=== PATIENT | female | born 1960 | race Two or more races ===

== ENCOUNTER 2018-04-10 05:02 | Inpatient (IN) | payer OTHER ==
[~2018-04-10] VITALS: Ht 157.5 cm; Wt 77.1 kg
[2018-04-10] MEDS ORDERED: CELECOXIB 100 MG CAPSULE ONE (05:50)
[2018-04-10] MEDS ORDERED: oxyCODONE HCL SR 10MG TAB.SR.12H PO ONE (05:50)
[2018-04-10] MEDS ORDERED: METOCLOPRAMIDE HCL 10 MG/2 ML VIAL ONE (05:50)
[2018-04-10] MEDS ORDERED: ACETAMINOPHEN ES 500 MG TABLET ONE (05:51)
[2018-04-10] MEDS ORDERED: ANESTHESIA TRAY IN PYXIS 1 EA TRAY MC ONE (06:15)
[2018-04-10] MEDS ORDERED: KETOROLAC TROMETHAMINE INJ 30 MG/ML VIAL ONE ×2 (06:21→10:31)
[2018-04-10] MEDS ORDERED: MORPHINE SULFATE INJ 4 MG/ML DISP.SYRIN ONE (06:21)
[2018-04-10] MEDS ORDERED: BUPIVACAINE MPF 0.5% W/EPI INJ 30 ML VIAL ONE (06:21)
[2018-04-10] MEDS ORDERED: MIDAZOLAM HCL 2 MG/2ML VIAL ONE (06:44)
[2018-04-10] MEDS ORDERED: HYDROMORPHONE INJ 2 MG/ML DISP.SYRIN ONE (06:44)
[2018-04-10] MEDS ORDERED: BUPIVACAINE 0.5 % PF 150 MG/30 ML VIAL ONE (06:44)
[2018-04-10] MEDS ORDERED: TRANEXAMIC ACID 1,500 MG in IV NS 0.9% 50 ML IV ONE (07:00)
[2018-04-10] MEDS ORDERED: BACITRACIN 50000 UNITS/VIAL ONE (07:31)
[2018-04-10] MEDS ORDERED: oxyCODONE IR immediate release 5 MG ONE (10:27)
[2018-04-10] MEDS ORDERED: KETOROLAC TROMETHAMINE INJ 30 MG/ML VIAL IV ONE (10:30)
[2018-04-10] MEDS ORDERED: ASPIRIN 600 MG/SUPP.RECT RC ONE (10:30)
[2018-04-10] MEDS ORDERED: oxyCODONE IR immediate release 5 MG PO ONE (10:30)
[2018-04-10] MEDS ORDERED: HYDROMORPHONE 1 MG/1 ML DISP.SYRIN ONE (10:40)
[2018-04-10] MEDS ORDERED: BISACODYL SUPP (10 MG) 10 MG/SUPP.RECT SUPP.RECT RC PRN (11:00)
[2018-04-10] MEDS ORDERED: ACETAMINOPHEN 325 MG TABLET PO PRN (11:00)
[2018-04-10] MEDS: KETOROLAC TROMETHAMINE INJ 30 MG/ML VIAL IV SCH ×3 (11:00→22:06)
[2018-04-10] MEDS ORDERED: HYDROMORPHONE INJ 0.5 MG/0.5 ML SYRINGE IV PRN (11:00)
[2018-04-10] MEDS ORDERED: ZOLPIDEM TARTRATE 5 MG TABLET PO PRN (11:00)
--- NOTE | 2018-04-10 11:41 | NUR ---
MS REIMBURSEMENT REPRESENTATIVE NOTES: RECEIVED PT FROM OR RECOVERY NURSE IN STABLE CONDITION. PT S/P RIGHT KNEE ARTHROPLASTY DONE BY DR. PICKERING. MD ORDERS NOTED AND REVIEWED. PT IS A/O X4. NO SOB OR ACUTE SIGNS OF DISTRESS NOTED. BREATHING IS EVEN AND UNLABORED. PT ON 2L VIA NC AFTER ANESTHESIA ADMINISTRATION. IV TO LEFT WRIST NOTED TO BE PATENT AND INTACT. NO REDNESS OR SIGNS OF INFILTRATION NOTED. JAMES CATHETER NOTED TO BE PATENT AND DRAINING CLEAR YELLOW URINE. ORDERS TO REMOVE CATHETER 2 DAYS POST OP ACKNOWLEDGE. SURGICAL DRESSINGS NOTED TO BE CLEAN, DRY, AND INTACT. KNEE BRACE NOTED WELL. PT ABLE TO WIGGLE TOES. GOOD CAP REFILL NOTED TO LOWER EXTREMITIES. VSS WITH THE EXCEPTION OF PT'S BP NOTED TO BE ON THE HIGHER END (1616/97). WILL ADMINISTER SCHEDULED PAIN MEDICATION PT STATES THAT SHE IS EXPERIENCING AN ACHING PAIN SATED A 7/10 TO HER OPERATIVE SITE. HEAD TO TOE ASSESSMENT COMPLETED. ADMISSION PHOTOS TAKEN UPON ARRIVAL AND PLACED IN PT'S CHART. BELONGINGS VERIFIED BY INSULATION INSTALLER. PT ORIENTED TO ROOM AND USE OF CALL LIGHT. BED IN LOW LOCKED POSITION, SIDE RAILS UP X2, CALL LIGHT WITHIN REACH. WILL CONTINUE TO MONITOR
[2018-04-10] MEDS: ONDANSETRON HCL/PF 4 MG/2 ML VIAL IVP SCH ×3 (12:32→22:06)
[2018-04-10] MEDS: IV D5/0.45 NACL 1,000 ML IV PRN (12:34)
[2018-04-10] MEDS: HYDROCODONE/APAP 5/325MG 1 EACH TABLET PO SCH ×4 (12:36→22:07)
[2018-04-10] MEDS ORDERED: LOSA50TA39 PO (13:16)
--- NOTE | 2018-04-10 14:32 | NUR ---
MS RN NOTES: ORDERS DR ESTRADA AT BEDSIDE. UPDATED ON PT'S BP WHICH IS CURRENTLY 165/97. PER MD "CONTINUE TO MONITOR, IF IT CONTINUES TO INCREASE, THEN I CAN GIVE HER SOMETHING ELSE". ALSO GIVEN ORDERS TO REMOVE PT'S JAMES POST OP DAY 1 AND WHEN ASKED BY PT'S DAUGHTER, ALSO ORDERED THAT FAMILY MAY STAY AT BEDSIDE OVERNIGHT IF SPACE PERMITS Addendum: 04/10/18 at 1757 by DANIELLE MONTIEL RN PLEASE DISREGARD TIME OF THIS NOTE IT WAS INPUTTED IMPROPERLY
[2018-04-10 15:30] VITALS: BP 165/97
--- NOTE | 2018-04-10 15:32 | NUR ---
MS RN NOTES: BP MANAGEMENT PT HAS A CURRENT OUTPATIENT PHYSICAL THERAPIST ASSISTANT OF 176/113. NO PRN OR SCHEDULED BP MEDS NOTED. DR ESTRADA NOTIFIED THROUGH [employer]. TELEPHONE ORDERS OBTAINED TO CONTINUE PT'S [place] 50MG PO DAILY , WITH A DOSE TO BE GIVEN NOW AND RECHECK PT'S BP AN HR AFTER ADMINISTRATION
[2018-04-10] MEDS: LOSARTAN POTASSIUM 50 MG TABLET PO SCH (16:18)
[2018-04-10] MEDS: CELECOXIB 100 MG CAPSULE PO SCH (16:18)
--- NOTE | 2018-04-10 17:32 | NUR ---
MS RN NOTES: ORDERS DR ESTRADA AT BEDSIDE. MD UPDATED ON PT'S BP WHICH IS CURRENTLY 165/97. PER MD "CONTINUE TO MONITOR, IF IT CONTINUES TO INCREASE, THEN I CAN GIVE HER SOMETHING ELSE". ALSO GIVEN ORDERS TO REMOVE PT'S JAMES POST OP DAY 1 AND WHEN ASKED BY PT'S DAUGHTER, ALSO ORDERED THAT FAMILY MAY STAY AT BEDSIDE OVERNIGHT IF SPACE PERMITS
[2018-04-10 18:20] VITALS: BP 154/85
--- NOTE | 2018-04-10 18:24 | NUR ---
MS RN CLOSING NOTES PT REMAINS STABLE. ALL NEEDS WERE MET DURING SHIFT AND ORDERS CARRIED OUT ACCORDINGLY. ALL DUE MEDS GIVEN. BP CONTINUES TO DROP AND CURRENT 154/85. SHE STATES HER PAIN IS MANAGEABLE AT THIS TIME. JAMES CATHETER REMAINS PATENT AND INTACT. PRN CARE RENDERED. SURGICAL DRESSINGS REMAIN CLEAN, DRY, AND INTACT. SAFETY MEASURES REMAIN IN PLACE. PT'S DAUGHTERS AT BEDSIDE. WILL ENDORSE TO NIGHTSHIFT RN FOR JOSE
--- NOTE | 2018-04-10 19:10 | NUR ---
RN OPENING NOTES PT AWAKE AND RESTING IN BED. DAUGHTER AT BEDSIDE. PT IS S/P RIGHT TOTAL KNEE ARTHROPLASTY BY DR WAYNE (04/10/18). NO COMPLAINTS OF SOB, PAIN, OR DISTRESS AT THIS TIME. PT HAS A LEFT WRIST IV. PT HAS A JAMES CATHETER DRAINING WELL, JAMES WILL BE DC'D PER DR ESTRADA. DRESSINGS TO BE CHANGED BY MD ONLY. SAFETY PRECAUTIONS IN PLACE, BED IN LOWEST LOCKED POSITION, X2 SIDE RAILS UP AND CALL LIGHT WITHIN REACH. WILL CONTINUE TO MONITOR.
[2018-04-10 20:00] VITALS: BP 143/90
[2018-04-10] MEDS: CEFAZOLIN SODIUM 1 GM in IV SODIUM CHLORIDE 0.9% 50 ML IV SCH (20:48)
[2018-04-11] MEDS: CEFAZOLIN SODIUM 1 GM in IV SODIUM CHLORIDE 0.9% 50 ML IV SCH (03:00)
[2018-04-11] MEDS: HYDROCODONE/APAP 5/325MG 1 EACH TABLET PO SCH ×6 (03:04→22:10)
[2018-04-11] MEDS: KETOROLAC TROMETHAMINE INJ 30 MG/ML VIAL IV SCH ×4 (04:20→23:26)
[2018-04-11] MEDS: ONDANSETRON HCL/PF 4 MG/2 ML VIAL IVP SCH (04:20)
--- NOTE | 2018-04-11 06:08 | NUR ---
RN CLOSING NOTES PT AWAKE AND RESTING IN BED. DAUGHTER AT BEDSIDE. PT IS S/P RIGHT TOTAL KNEE ARTHROPLASTY BY DR WAYNE (04/10/18). NO COMPLAINTS OF SOB OR DISTRESS. PT HAS A SCHEDULED NORCO AND TORADOL. PT AWARE OF PRN MEDICATIONS AVAILABLE TO HER. PT HAS A LEFT WRIST #20 IV RUNNING D51/2NS @75ML/HR, PT TOLERATING WELL. PT HAS A JAMES CATHETER DRAINING WELL, JAMES WILL BE DC'D PER DR ESTRADA. DRESSINGS TO BE CHANGED BY MD ONLY. SAFETY PRECAUTIONS IN PLACE, BED IN LOWEST LOCKED POSITION, X2 SIDE RAILS UP AND CALL LIGHT WITHIN REACH. ALL PATIENT NEEDS MET OVERNIGHT. WILL CONTINUE TO MONITOR. WILL ENDORSE TO DAY SHIFT NURSE FOR CONTINUITY OF CARE.
[2018-04-11 07:28] LABS: BASOPHILS % (AUTO) 0.2 % (0.0-2.0); EOSINOPHILS % (AUTO) 0.2 % (0.0-6.0); HEMATOCRIT 37 % (33-45); HEMOGLOBIN 12.5 g/dL (11.5-14.8); LYMPHOCYTES # (AUTO) 1.6 /CMM (0.8-4.8); MEAN CORPUSCULAR HGB CONC 34 g/dl (31.0-36.0); MEAN CORPUSCULAR VOLUME 89 fL (82-100); MONOCYTES # (AUTO) 1.1 /CMM (0.1-1.30); NEUTROPHILS # (AUTO) 9.7 /CMM (1.8-8.9); NEUTROPHILS % (AUTO) 77.6 % (43.0-81.0); PLATELET COUNT (AUTO) 210 /CMM (150-450); WHITE BLOOD COUNT (AUTO) 12.5 K/uL (4.3-11.0)
--- NOTE | 2018-04-11 07:56 | NUR ---
MS RN OPENING NOTES RECEIVED PATIENT IN STABLE CONDITION. IN NO APPARENT DISTRESS. BEDSIDE RAILS ARE UPX2. BED IS LOCKED AND LOWERED. CALL LIGHT IS WITHIN REACH. IV LINE IS INTACT AND PATENT. WILL CONTINUE TO MONITOR PATIENT.
[2018-04-11 08:00] VITALS: BP 113/53
[2018-04-11 08:01] LABS: CALCIUM, SERUM 8.4 mg/dL (8.5-10.1); CREATININE 0.9 mg/dL (0.6-1.3); POTASSIUM 4.1 mmol/L (3.5-5.1)
[2018-04-11] MEDS: ASPIRIN EC 325 MG TABLET.DR PO SCH ×2 (08:49→16:00)
[2018-04-11] MEDS: CELECOXIB 100 MG CAPSULE PO SCH (08:49)
[2018-04-11] MEDS: LOSARTAN POTASSIUM 50 MG TABLET PO SCH (08:49)
[2018-04-11] MEDS: IV D5/0.45 NACL 1,000 ML IV PRN (10:57)
[2018-04-11 16:00] VITALS: BP 127/74
--- NOTE | 2018-04-11 19:26 | NUR ---
MS RN CLOSING NOTES PATIENT IS IN STABLE CONDITION. IN NO APPARENT DISTRESS. BEDSIDE RAILS ARE UPX2. BED IS LOCKED AND LOWERED. CALL LIGHT IS WITHIN REACH. IV LINE IS INTACT AND PATENT. ALL NEEDS WERE MET. WILL ENDORSE CARE TO LIFE SKILLS EDUCATOR NURSE FOR JOSE.
--- NOTE | 2018-04-11 19:30 | NUR ---
MS/RN OPENING NOTES PT RECEIVED AWAKE, LAYING COMFORTABLY IN BED. FAMILY AT BEDSIDE. ON ROOM AIR, BREATHING EVEN AND UNLABORED. RIGHT LEG IMMOBILIZER IN PLACE. IV TO LEFT WRIST PATENT AND INTACT. DENIES SOB, NOTES 4/10 PAIN TO RIGHT LEG. BED IN LOW/LOCKED POSITION WITH CALL LIGHT IN REACH. SIDE RAILS UPX2. WILL CONTINUE TO MONITOR
[2018-04-11 20:00] VITALS: BP 124/73
--- NOTE | 2018-04-12 01:00 | NUR ---
MS/RN NOTES PT'S IV INFILTRATION, LEFT ARM NOTED WITH SWELLING. IVF STOPPED. IV REMOVED. WOULD LIKE TO REINSERT IV LATER TONIGHT, PRIOR TO NEXT TORADOL DOSE. EDUCATED ON IMPORTANCE OF IV ACCESS, RISKS/BENEFITS, STILL WOULD LIKE TO TRY A LITTLE LATER
[2018-04-12] MEDS: HYDROCODONE/APAP 5/325MG 1 EACH TABLET PO SCH ×6 (03:03→23:02)
--- NOTE | 2018-04-12 05:23 | NUR ---
RN NOTES: RESTARTED NEW IV ACCESS ON RIGHT WRIST USING G22, GOOD BLOOD RETURN NOTED, FLUSHED WITH SALINE, SECURE LINE WITH TRANSPARENT FILM DRESSING, PROPER LABELS APPLIED. IV ACCESS PLACED ON HL.
[2018-04-12] MEDS: KETOROLAC TROMETHAMINE INJ 30 MG/ML VIAL IV SCH (05:27)
--- NOTE | 2018-04-12 07:07 | NUR ---
MS/RN CLOSING NOTES PT WITH EYES CLOSED. ON ROOM AIR, BREATHING EVEN AND UNLABORED. DENIES SOB, PAIN MANAGED WITH PRN NORCO AND TORADOL. IV TO RFA PATENT AND INTACT RUNNING IVF ORDERED. ENCOURAGED INCENTIVE SPIROMETER USE WHILE AWAKE. WBAT TO RLE. ASSIST WITH AMBULATION WITH FWW. NO SIGNIFICANT CHANGES OVERNIGHT. ALL NEEDS MET. CPM MACHINE AT BEDSIDE. BED IN LOW/LOCKED POSITION WITH CALL LIGHT IN REACH. SIDE RAILS UPX2. HOB ELEVATED. WILL ENDORSE TO DAY SHIFT RN JOSE.
[2018-04-12 08:00] VITALS: BP 145/87
--- NOTE | 2018-04-12 08:00 | NUR ---
MS RN OPENING NOTE RECEIVED PATIENT IN BED LOCKED IN LOWEST POSITION WITH SIDERAILS UP x2. NO FACIAL GRIMACING NOTED FOR PAIN. NO SOB OR DISTRESS NOTED ON ROOM AIR TOLERATING WELL AT 96%. CALL LIGHT WITHIN REACH. S/P RIGHT TOTAL KNEE ARTHROPLASTY WITH DR. CHRISTIANSON 04/10/18- DRESSING TO BE CHANGED BY MD. RIGHT FOREARM INTACT AND PATENT WITH IV FLUIDS RUNNING AT 75 ML/HR. LABS THIS MORNING. ROUTINE PAIN MEDICATIONS. WBAT ON RIGHT LOWER EXT WITH IMMOBILIZER WHEN AMBULATING. WILL CONTINUE TO MONITOR THROUGHOUT SHIFT
[2018-04-12] MEDS: ASPIRIN EC 325 MG TABLET.DR PO SCH ×2 (09:07→16:31)
[2018-04-12] MEDS: LOSARTAN POTASSIUM 50 MG TABLET PO SCH (09:07)
--- NOTE | 2018-04-12 11:15 | NUR ---
MS RN NOTE SPOKE WITH CASE MANAGEMENT, PATIENT WILL HAVE TRANSPORTATION TO HOME FOR DISCHARGE TOMORROW 04/13/18 PATIENT AWARE AND IS OKAY WITH LEAVING TOMORROW
--- NOTE | 2018-04-12 11:42 | NUR ---
MS/RN NOTE THE PATIENT WITH RIGHT KNEE PAIN 10/31. ROUTINE NORCO 5/325 1 TAB IS GIVEN.
[2018-04-12] MEDS: DOCUSATE SODIUM 100 MG CAPSULE PO PRN ×2 (13:13→21:54)
--- NOTE | 2018-04-12 15:00 | NUR ---
MS RN NOTE SPOKE WITH PATIENTS PREFERRED PHARMACY- [facility] IN [place] AND SPOKE WITH TRINA IN REGARDS TO PATIENTS PRESCRIPTION FROM DR OH. PHARMACY STATED THAT PRESCRIPTION NEEDED TO BE ON PRESCRIPTION PAD AND AT THIS TIME WILL FOLLOW UP WITH MD OFFICE FRIDAY MORNING BEFORE PATIENT IS TAKEN HOME BY AMBULANCE TO HOME. PATIENT MADE AWARE
--- NOTE | 2018-04-12 15:19 | NUR ---
MS RN NOTE PATIENT HAS RIGHT KNEE PAIN 7/10-ACHING; ALTHOUGH THERAPEUTIC METHODS OFFERED STILL NOTICED WITH PAIN. ROUTINE NORCO 1 TAB GIVEN.
[2018-04-12 15:59] VITALS: BP 136/78
--- NOTE | 2018-04-12 18:47 | NUR ---
MS RN CLOSING NOTE PATIENT RESTING COMFORTABLY AT THIS TIME. ABLE TO COMMUNICATE ALL NEEDS. CALL LIGHT WITHIN REACH AT ALL TIMES. SAFETY MEASURES IMPLEMENTED. DISCHARGE IN AM, AWAITING TRANSPORTATION TIME. ALL DUE MEDICATIONS GIVEN ORDERED. NO SOB OR DISTRESS NOTED ON ROOM AIR TOLERATING WELL AT 97%. WILL ENDORSE TO EDITOR MAGAZINE NURSE FOR JOSE
[2018-04-12 19:58] VITALS: BP 131/77
[2018-04-13] MEDS: HYDROCODONE/APAP 5/325MG 1 EACH TABLET PO SCH ×3 (03:48→11:06)
--- NOTE | 2018-04-13 06:21 | NUR ---
MS RN NOTES AWAKE & RESPONSIVE. NOT IN ANY DISTRESS. NO SOB NOTED. DENIES ANY PAIN OR DISCOMFORT AT THIS TIME. WITH IV-HL PATENT & INTACT. MONITORED ACCORDINGLY. CALL LIGHT WITHIN REACH. BED IN LOWEST POSITION. SR UP X 2 FOR SAFETY. WILL ENDORSE TO NEXT SHIFT.
--- NOTE | 2018-04-13 07:56 | NUR ---
MS RN OPENING NOTE RECEIVED PATIENT AWAKE IN BED LOCKED IN LOWEST POSITION WITH SIDERAILS UP x2. NO FACIAL GRIMACING NOTED AT THIS TIME. NO SOB OR DISTRESS NOTED ON ROOM AIR TOLERATING WELL AT 97%. ABLE TO COMMUNICATE NEEDS, CALL LIGHT WITHIN REACH. ALERT AND ORIENTED x4. DISCHARGE TODAY AWAITING FOR AMBULANCE TRANSPORTATION TIME. IV INTACT AND PATENT NO REDNESS RO SWELLING NOTED. WILL CONTINUE TO MONITOR THROUGHOUT SHIFT
[2018-04-13 08:00] VITALS: BP 141/88
[2018-04-13 08:17] VITALS: BP 141/88
[2018-04-13] MEDS: LOSARTAN POTASSIUM 50 MG TABLET PO SCH (08:17)
[2018-04-13] MEDS: ASPIRIN EC 325 MG TABLET.DR PO SCH (08:17)
--- NOTE | 2018-04-13 08:18 | NUR ---
MS RN NOTE ROUTINE NORCO 5/325 PO SCHEDULED MED GIVEN FOR RIGHT KNEE PAIN 12/01.
--- NOTE | 2018-04-13 10:45 | NUR ---
MS RESENDIZ NOTE CALLED DR JEFFERSON'S OFFICE IN REGARDS TO DRESSING CHANGE AND ISSUE WITH PRESCRIPTION AT PHARMACY. AWAITING CALL BACK Addendum: 04/13/18 at 1110 by BRUCE AUSTIN RN CALL RECEIVED FROM . AT THIS TIME MD WILL CHANGE DRESSING AT FOLLOW UP APPT OUTPATIENT AND WILL NOTIFY PHARMACY ABOUT NORCO PRESCRIPTION
--- NOTE | 2018-04-13 13:45 | NUR ---
CABIN CLEANER NOTE REPORT GIVEN TO EMT PROVIDED BY WORKERS COMP. PATIENT DISCHARGED IN STABLE CONDITION TO HOME. ALERT AND ORIENTED x4. NO PAIN AT THIS TIME NOTED. NO SOB OR DISTRESS NOTED. ALL DUE MEDICATIONS GIVEN ORDERED. ALL NURSING CARE NEEDS ATTENDED TO. ALL PATIENT BELONGINGS ACCOUNTED AT DISCHARGE. PRESCRIPTION FROM HOSPITALIST AND ORTHO MD GIVEN TO DAUGHTER. ALL DISCHARGE INSTRUCTIONS GIVEN TO PATIENT AND DAUGHTER AT BEDSIDE, TEACH BACK RECEIVED FROM DAUGHTER AND PATIENT. IV REMOVED, SKIN INTACT-HAS SX DRESSING TO BE CHANGED BY MD ONLY. HAS FOLLOW UP APPT WITH PCP AND ORTHO MD. REFUSED PHOTO DOCUMENTATION AT THIS TIME. LEFT VIA PRIVATE AMBULANCE
== END 2018-04-13 13:45 | disposition home health service (06) | DRG 470 ==
LOC: DS 05:02 → MED 10:41
PROVIDERS: ADMIT Internal Medicine; ATTEND Internal Medicine
PROC: 0SRC0J9 Replacement of Right Knee Joint with Synthetic Substitute, Cemented, Open Approach (ICD-10-PCS; principal; 2018-04-10)
DX: M17.11 Unilateral primary osteoarthritis, right knee (principal); I10 Essential (primary) hypertension
CPT/HCPCS: 36415; 73560-TC; 80048-TC; 85025-TC; 86850-TC; 86921-TC; 87081-TC; 88305-TC; 88311-TC; 97110-TC; 97116-TC; 97530-TC; A4216; A4217; A6402; C1713; G0378; J0690; J1100; J1170; J1885; J2250; J2270; J2405; J2704; J2765; J3490; L1830